=== PATIENT | female | born 1950 | race Caucasian/White ===

== ENCOUNTER 2020-12-16 10:02 | Emergency (ER) | payer BC, SELFPAY ==
[2020-12-16 10:16] VITALS: BP 168/97; PULSE 95; RESP 16; TEMP 37.2; O2SAT 97
--- NOTE | 2020-12-16 10:46 | ED.WOUNDLAC ---
HPI - Wound/Laceration General Chief Complaint: Extremity Injury, Upper Stated Complaint: Left hand injury Time Seen by Provider: 12/16/20 10:20 Source: patient and RN notes reviewed Mode of arrival: ambulatory Limitations: no limitations History of Present Illness HPI narrative: Patient presents today complaining of a dog scratch to the dorsum of her left hand that was sustained 30 minutes prior to arrival. She is feeling tug-of-war with her dog Leyla when it accidentally scratched her. It did not bite her. She is up-to-date on her tetanus vaccine. She has not tried any pnio-pfo-eoygoly interventions prior to arrival. Related Data Home Medications Medication Instructions Recorded Confirmed olmesartan 12/16/20 verapamil mg PO 12/16/20 Allergies Allergy/AdvReac Type Severity Reaction Status Date / Time Penicillins Allergy Intermediate itching Verified 05/10/14 19:21 Sulfa (Sulfonamide Allergy Intermediate itching Verified 05/10/14 19:21 Antibiotics) Review of Systems Review of Systems: CONSTITUTIONAL: Denies body aches, fever, chills, or sweats. EYES: Denies visual changes, redness, or discharge. ENT: Denies rhinorrhea, congestion, sore throat, or otalgia. CARDIOVASCULAR: Denies chest pain, palpitations, or edema. RESPIRATORY: Denies cough or dyspnea. GASTROINTESTINAL: Denies abdominal pain, nausea, vomiting, or diarrhea. GENITOURINARY: Denies dysuria or hematuria. SKIN: Denies rash, itching. + Skin tear MUSCULOSKELETAL: Denies back pain, joint pain, or myalgia. NEUROLOGIC: Denies headache, numbness, tingling, or weakness. PSYCH: Denies depression or anxiety. [facility] Past Medical History Medical History (Updated 12/16/20 @ 10:56 by Mindy Juarez, DIVISION ENGINEER, ) Hypertension Comments At time of signature, I have reviewed and agree with nursing past medical, surgical, social and family history unless otherwise noted. Please see nursing chart for further information. There is no relevant family history pertinent to the presenting complaint Exam Narrative: GENERAL: Well-appearing, well-nourished, and in no acute distress. HEAD: Normocephalic, atraumatic. EYES: EOMI. No redness or drainage. Conjunctivae normal. ENT: Mucous membranes pink and moist. NECK: Normal AROM. CHEST: No respiratory distress. EXTREMITIES: 5 cm flap full thickness skin tear to the dorsum of the left hand. No active bleeding. Distal sensation intact. Capillary refill normal. Radial pulse normal. Full range of motion of all fingers. SKIN: Warm, dry, no rash. Capillary refill normal. Normal skin turgor. NEURO: No focal deficits. Alert and oriented x3. Gait steady. PSYCH: Normal affect. No signs of depression or anxiety. Course Vital Signs Vital signs: Vital Signs Temperature 98.9 F 12/16/20 10:16 Pulse Rate 95 12/16/20 10:16 Respiratory Rate 16 12/16/20 10:16 Blood Pressure 168/97 H 12/16/20 10:16 Pulse Oximetry 97 12/16/20 10:16 Temperature 98.9 F 12/16/20 10:16 Pulse Rate 95 12/16/20 10:16 Respiratory Rate 16 12/16/20 10:16 Blood Pressure 168/97 H 12/16/20 10:16 Pulse Oximetry 97 12/16/20 10:16 Reviewed. Pt has been instructed to follow up with her PCP regarding her elevated blood pressure today. Procedures Laceration Laceration 1: Date: 12/16/20 Time: 10:40 Site: upper extremity Size (cm): 5 Description: flap Depth: simple, single layer (skin tear) Local Anesthetic: none Pre-repair: wound explored and irrigated ====== Skin Level ====== Skin layer closed with: dermabond and steri strips ====== Subcutaneous Layer ====== ====== Muscle Layer ====== ====== Tendon Layer ====== MDM - Wound/Laceration Differential Diagnosis Differential diagnosis: Likely laceration, abrasion, avulsion of skin and other (Skin tear) Critical Care Time Critical Care Time Critical Care Time: No Discharge Plan
== END 2020-12-16 10:51 | disposition home or self-care (01) ==
PROVIDERS: Emergency Provider Nurse Practitioner; PCP Registered Nurse
DX: S61.412A Laceration without foreign body of left hand, initial encounter (principal); W54.8XXA Other contact with dog, initial encounter; I10 Essential (primary) hypertension
CPT/HCPCS: 12002; 99212; G0463

== ENCOUNTER 2021-06-15 11:03 | Outpatient (CLI) | payer BC, SELFPAY ==
--- NOTE | ~2021-06-15 | CT_ITS ---
EXAMINATION: CT lung screening DATE: 06/15/2021 11:30 INDICATION: Personal history of nicotine dependence, current smoker with 50 pack year history TECHNIQUE: Computed tomography (CT) of the chest was performed without intravenous contrast. The dose -length product (DLP) was 67.83 mGy-cm. Automated exposure control and iterative reconstruction techn ique were employed. COMPARISON: None FINDINGS: There is mild emphysema. There is a 3 mm nodule in the left lung apex on image 17. There is a 4 mm nodule in the left upper lobe on image 40. There is a 5 mm subpleural nodule of the left lowe r lobe on image 60. There is a 3 mm nodule of the right middle lobe on image 85. No pathologically en larged thoracic lymph nodes are identified. The heart size is normal. Calcified coronary artery ather osclerosis is noted The lungs are free of focal airspace opacities. There is no pleural effusion or pneumothorax. There are nonobstructing stones of the kidneys. There is a 2.3 cm cyst of the left kidn ey. IMPRESSION: 1. Lung-RADS category 2: Benign appearance or behavior. Continue annual screening with noncontrast lo w-dose chest CT in 12 months. Reviewed, dictated and finalized at location A. IMPRESSION: 1. Lung-RADS category 2: Benign appearance or behavior. Continue annual screeni ng with noncontrast low-dose chest CT in 12 months.
== END 2021-06-15 11:04 | disposition home or self-care (01) ==
LOC: ANHIMG 11:04
PROVIDERS: PCP Registered Nurse; Visit Provider Registered Nurse
DX: F17.200 Nicotine dependence, unspecified, uncomplicated (principal); F17.210 Nicotine dependence, cigarettes, uncomplicated
CPT/HCPCS: 71271

== ENCOUNTER 2021-09-11 09:57 | Outpatient (CLI) | payer BC, SELFPAY ==
--- NOTE | ~2021-09-11 | DEXA_ITS ---
Bone Density Report Name: HOMER ARAYA Age: 70 Sex: Female Ethnicity: White Date of : 1950 Indication: postmenopausal; screening for osteoporosis; Referring Provider: CESILIA, GLEN Study: Bone densitometry was performed. Exam Date: September 11, 2021 Accession number: [id number] Bone Density: Region BMD T-score Z-score Classification AP Spine(L1-L4) 0.704 -3.1 -1.1 Osteoporosis Femoral Neck (Left) 0.541 -2.8 -1.0 Osteoporosis Total Hip (Left) 0.655 -2.4 -0.9 Osteopenia Femoral Neck (Right) 0.512 -3.0 -1.3 Osteoporosis Total Hip (Right) 0.633 -2.5 -1.1 Osteoporosis Total Hip Mean 0.644 -2.5 -1.0 Osteopenia World Health Organization criteria for BMD impression classify patients as: Normal (T-score at or above -1.0), Osteopenia (T-score between -1.0 and -2.5), or Osteoporosis (T-score at or below -2.5). 10-year Fracture Risk: FRAX not reported because: Some T-score for Spine Total or Hip Total or Femoral Neck at or below -2.5 Clinical Information Provided by Patient: Smokes Patient maximum height was 63 Menopause Age: 45 Drinks caffeinated beverages Onset of menses at age 17 Number of children 1 Impression: The patient has osteoporosis, based on the Total Spine T-score. The patient has risk factors, including: smoking. Discussion: INCREASED RISK OF FRACTURE. BONE DENSITY IS UNDESIRABLY LOW AT ONE OR MORE SKELETAL SITES, CONSISTENT WITH POSTMENOPAUSAL OSTEOPOROSIS. This patient's lowest T-score meets the World Health Organization's (WHO) criteria for osteoporosis at one or more sites (T-score -2.5 or below). In untreated patients, the risk of osteoporotic fracture increases approximately two-fold for each 1.0 SD decrease in T-score. Low bone density is not the only risk factor for fracture; also consider factors such as patient's age, frailty or poor health, risk of falling, risk of injury, previous osteoporotic fracture, family history of osteoporosis, cigarette smoking, low body weight, etc. Not everyone with low bone mineral density has osteoporosis; osteomalacia and other metabolic bone disorders should also be considered. Patients who have osteoporosis should be evaluated for specific diseases and conditions (secondary causes) that may cause or contribute to bone loss. The [place] Association [employer] Clinical Endocrinologists (AACE) and National Osteoporosis Foundation (NOF) recommend pharmacologic intervention for all postmenopausal women whose T-score is in this range. The patient should follow a healthful lifestyle (good nutrition with adequate calcium and vitamin D, and appropriate weight-bearing exercise). Follow-Up: Consider a repeat BMD and Vertebral Fracture Assessment (VFA) exam in 2 years or sooner if medically necessary, to reassess this patient's status. Reported b
== END 2021-09-11 09:58 | disposition home or self-care (01) ==
PROVIDERS: PCP Registered Nurse; Visit Provider Registered Nurse
DX: Z13.820 Encounter for screening for osteoporosis (principal); M81.0 Age-related osteoporosis without current pathological fracture
CPT/HCPCS: 77080

== ENCOUNTER → 2022-11-26 09:50 | Outpatient (CLI) | payer BC, SELFPAY ==
--- NOTE | ~2022-11-26 | XR_ITS ---
Clinical Indication: Cough PA and lateral views of the chest: Comparison: 06/30/2012 Findings: The lungs are clear, without evidence of focal consolidation or pleural effusion. Cardiome diastinal silhouette is within normal limits. Bones and soft tissues are unremarkable. Impression: Normal chest. Reviewed, dictated and finalized at location . Impression: Normal chest.
== END ==
PROVIDERS: PCP Registered Nurse; Visit Provider Registered Nurse
DX: R05.9 Cough, unspecified (principal)
CPT/HCPCS: 71046

== ENCOUNTER 2023-11-09 12:45 | Outpatient (CLI) | payer BC, SELFPAY ==
--- NOTE | ~2023-11-09 | CT_ITS ---
CT Scan of the Chest without Contrast: Clinical Indication: Lung cancer screening, nicotine dependence Technique: Contiguous sections were acquired throughout the chest without intravenous contrast. Dose reduction technique was used on this scan by utilizing automated exposure control and iterative recon struction technique. The dose-length product (DLP) was 42.31 mGy-cm. COMPARISON: 06/15/2021 Findings: There is no evidence of any significant mediastinal, hilar or axillary lymphadenopathy. Extensive cor onary artery calcifications are present. There are atherosclerotic calcifications of the aorta.. There is no evidence of pleural or pericardial effusion. There is moderate to advanced emphysema. There is linear scarring or atelectasis at the lingula. Stab le 4 mm left apical pulmonary nodule. Stable 4 mm left upper lobe pulmonary nodule more inferolateral ly. Stable triangular pleural-based 6 mm nodule at the medial left lower lobe (axial image 57).. Images through the upper abdomen reveal no abnormalities. Impression: Lung RADS 2: Benign appearance. 12 month follow-up screening CT advised. Reviewed, dictated and finalized at location . Impression: Lung RADS 2: Benign appearance. 12 month follow-up screening CT advised.
== END 2023-11-09 12:46 | disposition home or self-care (01) ==
PROVIDERS: PCP Registered Nurse; Visit Provider Registered Nurse
DX: Z12.2 Encounter for screening for malignant neoplasm of respiratory organs (principal); Z87.891 Personal history of nicotine dependence
CPT/HCPCS: 71271

== ENCOUNTER 2024-11-24 14:13 | Outpatient (CLI) | payer BC, SELFPAY ==
--- NOTE | ~2024-11-24 | CT_ITS ---
EXAMINATION:CT lung screening DATE: 11/24/2024 14:58 INDICATION: Personal history of nicotine dependence. TECHNIQUE: Computed tomography (CT) of the chest was performed without intravenous contrast. Automated exposure control and iterative reconstruction technique were employed. The dose-length product (DLP) was 35.98 mGy-cm. COMPARISON: Chest CT 11/09/2023 FINDINGS: There is mild scarring at the lung apices. There is a stable 4 mm nodule in left upper lobe. There is a stable 6 mm nodule in left lower lobe. There is a stable 4 mm nodule in right middle lobe. There are a few scattered nodules in the lungs measuring up to 3 mm. There is moderate emphysema. There is mild atelectasis bilaterally. No pleural effusion. The heart size is normal. There are coronary artery calcifications. No pericardial effusion. There is a 3.3 cm cyst in left kidney. There is mild thoracic spondylosis. IMPRESSION: 1. Lung-RADS category 2: Benign appearance or behavior. Continue annual screening with noncontrast low-dose chest CT in 12 months. Reviewed, dictated and finalized at location E. IMPRESSION: 1. Lung-RADS category 2: Benign appearance or behavior. Continue annual screeni ng with noncontrast low-dose chest CT in 12 months.
== END 2024-11-24 14:14 | disposition home or self-care (01) ==
LOC: MICIMG 14:14
PROVIDERS: PCP Registered Nurse; Visit Provider Registered Nurse
DX: F17.200 Nicotine dependence, unspecified, uncomplicated (principal)
CPT/HCPCS: 71271